=== PATIENT | female | born 1940 | race Asian ===

== ENCOUNTER → 2016-07-16 | Outpatient (CLI) | payer MEDICARE ==
[2005-03-04 09:00] VITALS: TEMP 97
== END ==
LOC: MC.RAD 14:19
DX: Z12.31 Encounter for screening mammogram for malignant neoplasm of breast (principal)

== ENCOUNTER → 2017-07-28 | Outpatient (CLI) | payer MEDICARE, OTHER ==
[2005-03-04 09:00] VITALS: TEMP 97
== END ==
LOC: MHCPAIN 09:53
DX: G89.29 Other chronic pain (principal); M47.812 Spondylosis without myelopathy or radiculopathy, cervical region; R51 Headache
CPT/HCPCS: G0463

== ENCOUNTER → 2017-08-12 | Outpatient (CLI) | payer MEDICARE, OTHER | LOC: MHCPAIN 12:25 | DX: M50.321 Other cervical disc degeneration at C4-C5 level (principal) ==

== ENCOUNTER → 2017-08-20 | Outpatient (CLI) | payer MEDICARE, OTHER | LOC: MHCPAIN 11:01 | DX: G89.29 Other chronic pain (principal); M50.30 Other cervical disc degeneration, unspecified cervical region; M54.81 Occipital neuralgia | CPT/HCPCS: G0463 ==

== ENCOUNTER → 2017-08-26 | Outpatient (CLI) | payer MEDICARE, OTHER | LOC: MHCPAIN 15:31 | DX: M50.321 Other cervical disc degeneration at C4-C5 level (principal) ==

== ENCOUNTER → 2017-09-07 | Outpatient (CLI) | payer MEDICARE, OTHER | LOC: MHCPAIN 11:09 | DX: G89.29 Other chronic pain (principal); M50.90 Cervical disc disorder, unspecified, unspecified cervical region; M54.12 Radiculopathy, cervical region | CPT/HCPCS: G0463 ==

== ENCOUNTER → 2017-09-23 | Outpatient (CLI) | payer MEDICARE, OTHER | LOC: MHCPAIN 14:12 | DX: M50.322 Other cervical disc degeneration at C5-C6 level (principal) | CPT/HCPCS: J1100; J2250; J2405; J3010; Q9967 ==

== ENCOUNTER → 2017-10-07 | Outpatient (CLI) | payer MEDICARE, OTHER | LOC: MHCPAIN 14:01 | DX: G89.29 Other chronic pain (principal); M50.321 Other cervical disc degeneration at C4-C5 level; M46.92 Unspecified inflammatory spondylopathy, cervical region; M54.12 Radiculopathy, cervical region; R51 Headache | CPT/HCPCS: G0463 ==

== ENCOUNTER → 2018-09-08 | Outpatient (CLI) | payer MEDICARE, OTHER | LOC: MC.RAD 11:07 | DX: Z12.31 Encounter for screening mammogram for malignant neoplasm of breast (principal) ==

== ENCOUNTER → 2018-12-26 | Outpatient (CLI) | payer MEDICARE, OTHER | LOC: COL.RAD 12:48 | DX: M41.86 Other forms of scoliosis, lumbar region (principal); M48.07 Spinal stenosis, lumbosacral region; M12.88 Other specific arthropathies, not elsewhere classified, other specified site; M51.16 Intervertebral disc disorders with radiculopathy, lumbar region ==

== ENCOUNTER 2019-09-07 14:56 | Outpatient (CLI) | payer MEDICARE, OTHER ==
[~2019-09-07] VITALS: Ht 152.4 cm; Wt 55.7 kg
[2019-09-07 15:23] VITALS: BP 149/66; PULSE 71; TEMP 98.3
[2019-09-07] MEDS ORDERED: TRANDATE 200MG200 MG PO (15:39)
[2019-09-07] MEDS ORDERED: XANAX .25M0.25 MG/TA PO (15:40)
[2019-09-07] MEDS ORDERED: PROTONIX 40MG T40 MG PO (15:41)
[2019-09-07] MEDS ORDERED: CRESTOR 10MG10 MG PO (15:41)
[2019-09-07] MEDS ORDERED: CALTRATE 600 +1 TAB PO (15:42)
[2019-09-07] MEDS ORDERED: FISH OIL1000 MG PO (15:42)
== END 2019-09-07 16:02 | disposition home or self-care (01) ==
LOC: EUO 14:56
DX: M81.0 Age-related osteoporosis without current pathological fracture (principal)
CPT/HCPCS: J0897

== ENCOUNTER 2020-03-08 15:48 | Outpatient (CLI) | payer MEDICARE ==
[~2020-03-08] VITALS: Ht 152.4 cm; Wt 45.5 kg
[~2020-03-08 15:48] MED LIST: CALTRATE 600 +1 TAB PO; CRESTOR 10MG10 MG PO; FISH OIL1000 MG PO; PROTONIX 40MG T40 MG PO; TRANDATE 200MG200 MG PO; XANAX .25M0.25 MG/TA PO
[2020-03-08 16:33] VITALS: BP 157/84; PULSE 73; TEMP 98.3
== END 2020-03-08 16:35 | disposition home or self-care (01) ==
LOC: EUO 15:48
DX: M81.0 Age-related osteoporosis without current pathological fracture (principal)
CPT/HCPCS: J0897

== ENCOUNTER → 2020-12-24 | Outpatient (CLI) | payer MEDICARE | LOC: MC.RAD 12-02 13:45 | DX: Z12.31 Encounter for screening mammogram for malignant neoplasm of breast (principal) ==

== ENCOUNTER 2021-10-10 13:06 | Outpatient (CLI) | payer MEDICARE ==
[~2021-10-10] VITALS: Ht 152.4 cm; Wt 50.3 kg
[2021-10-10 13:25] VITALS: BP 105/50; PULSE 75; TEMP 98.2
[2021-10-10] MEDS ORDERED: MYRBETR25MG PO (13:50)
[2021-10-10] MEDS ORDERED: RESTORIL 1515 MG/CAP PO (13:50)
[2021-10-10] MEDS ORDERED: PROBIOTIC-MAJOR PO (13:50)
== END 2021-10-10 13:53 | disposition home or self-care (01) ==
LOC: EUO 13:06
DX: M81.0 Age-related osteoporosis without current pathological fracture (principal)
CPT/HCPCS: J0897

== ENCOUNTER → 2024-01-10 | Outpatient (CLI) | payer MEDICARE, BC ==
[~2024-01-10] MED LIST changes: +MYRBETR25MG PO; +PROBIOTIC-MAJOR PO; +RESTORIL 1515 MG/CAP PO
== END ==
LOC: COL.RAD 13:58
DX: N28.1 Cyst of kidney, acquired (principal)